=== PATIENT | female | born 1980 | race African-American/Black ===

== ENCOUNTER 2017-05-28 16:37 | Emergency (ER) | payer SELFPAY ==
[~2017-05-28] VITALS: Ht 165.1 cm; Wt 100.0 kg
[2017-05-28 22:22] VITALS: BP 156/92
[2017-05-28] MEDS ORDERED: KETOROLAC 60MG/2ML VIAL IM STA (22:31)
[2017-05-28] MEDS ORDERED: MAGNESIUM/ALUMINUM HYDROXIDE/SIMETHICONE 30ML UDC PO STA (22:31)
== END 2017-05-28 23:19 | disposition home or self-care (01) ==
LOC: ER 16:52
DX: R10.13 Epigastric pain (principal); N93.9 Abnormal uterine and vaginal bleeding, unspecified; F17.200 Nicotine dependence, unspecified, uncomplicated
CPT/HCPCS: 99283